=== PATIENT | male | born 1965 | race African-American/Black ===

== ENCOUNTER 2019-05-12 15:50 | Inpatient (IN) | payer MEDICAID ==
[~2019-05-12] VITALS: Ht 180.3 cm; Wt 68.9 kg
[2019-05-12] MEDS ORDERED: ALBUTEROL FS 2.5 MG/3 ML VIAL.NEB ONE ×3 (15:58→17:45)
[2019-05-12] MEDS ORDERED: ALBUTEROL FS 2.5 MG/3 ML VIAL.NEB NEB ONE (16:00)
[2019-05-12] MEDS ORDERED: IV NS 0.9% 1,000 ML IV ONE (16:00)
[2019-05-12] MEDS ORDERED: IPRATROPIUM NEB FS 0.5 MG/2.5 ML AMPUL.NEB NEB ONE (16:00)
[2019-05-12] MEDS ORDERED: Magnesium 1GM/D5W 100ML PREMIX 200 ML IV ONE (16:00)
[2019-05-12] MEDS ORDERED: methylPREDNISolone SOD SUCC 125 MG/2ML VIAL IV ONE (16:00)
[2019-05-12] MEDS ORDERED: ALBUTEROL FS 2.5 MG/3 ML VIAL.NEB CONTNEB ONE ×2 (16:00→17:30)
--- NOTE | 2019-05-12 16:00 | NUR ---
BIB FROM HOME FOR SOB AND COLD SINCE LAST NIGHT. 89% ON RA. PATIENT W Hx OF CHRONIC ASTHMA PER . TO ER BED 8, PLACED PATIENT ON SIMPLE MASK AT 6LPM, NOTED TRIPODING POSITING. HOOKED TO INSURANCE SALES MANAGER, CHANGED TO HOSPITAL GOWN, IVP STARTED AT LH 20G AND RH 20G, PATENT AND FLUSHING WELL. DR JOHNSON AT BEDSIDE. RT AT BEDSIDE STARTED PATIENT W BREATHING TX PER DOCTOR JOHNSON'S VERBAL ORDER.
[2019-05-12] MEDS ORDERED: IPRATROPIUM NEB FS 0.5 MG/2.5 ML AMPUL.NEB ONE (16:09)
[2019-05-12] MEDS ORDERED: Magnesium 1GM/D5W 100ML PREMIX 100 ML IV ONE ×2 (16:13→16:17)
[2019-05-12] MEDS ORDERED: methylPREDNISolone SOD SUCC 125 MG/2ML VIAL ONE (16:13)
[2019-05-12 16:19] LABS: BASOPHILS # (AUTO) 0.1 /CMM (0.0-0.2); BASOPHILS % (AUTO) 0.9 % (0.0-2.0); EOSINOPHILS % (AUTO) 7.2 % (0.0-6.0); HEMATOCRIT 42 % (39-51); HEMOGLOBIN 13.5 g/dL (13.5-17.5); LYMPHOCYTES # (AUTO) 1.1 /CMM (0.8-4.8); LYMPHOCYTES % (AUTO) 16.8 % (20.0-44.0); MEAN CORPUSCULAR HGB CONC 32 g/dl (31.0-36.0); MEAN CORPUSCULAR VOLUME 91 fL (80-96); MONOCYTES # (AUTO) 0.7 /CMM (0.1-1.30); MONOCYTES % (AUTO) 11.4 % (2.0-12.0); NEUTROPHILS # (AUTO) 4.2 /CMM (1.8-8.9); NEUTROPHILS % (AUTO) 63.7 % (43.0-81.0); PLATELET COUNT (AUTO) 252 /CMM (150-450); RED BLOOD CELL COUNT(AUTO) 4.59 MIL/uL (4.5-6.0); WHITE BLOOD COUNT (AUTO) 6.5 K/uL (4.3-11.0)
[2019-05-12 16:27] LABS: ABG BASE EXCESS -3.9 mmol/L; ABG OXYGEN SATURATION 97.5 % (92.0-98.5); ABG PCO2 38.2 mmHg (35.0-45.0); ABG PO2 111.7 mmHg (75.0-100.0); AaDO2 158.5 mmHg; COHb 0.6 % (0.5-1.5); MetHb 0.3 % (0.0-1.5); O2Hb 96.6 % (94.0-97.0); SITE, ABG Right Radial; VENT MODE, BG SM 6LPM
[2019-05-12 17:09] LABS: CALCIUM, SERUM 8.6 mg/dL (8.5-10.1); CARBON DIOXIDE 23 mmol/L (21-32); CHLORIDE 105 mmol/L (98-107); CREATININE 0.9 mg/dL (0.6-1.3); GLUCOSE 138 mg/dL (74-106); POTASSIUM 3.3 mmol/L (3.5-5.1); SODIUM SERUM 142 mmol/L (136-145); UREA NITROGEN, BLOOD 17 mg/dL (7-18)
[2019-05-12 17:16] LABS: ALANINE AMINOTRANSFERASE 29 U/L (12-78); ALBUMIN 3.2 g/dL (3.4-5.0); ALKALINE PHOSPHATASE 64 U/L (46-116); ASPARTATE AMINOTRANSFERASE 29 U/L (15-37); B-TYPE NATRIURETIC PEPTIDE 70 PG/ML (0-125); BILIRUBIN,DIRECT 0.2 mg/dL (0.0-0.2); BILIRUBIN,TOTAL 0.6 mg/dL (0.2-1.0); TOTAL PROTEIN, SERUM 6.7 g/dL (6.4-8.2)
--- NOTE | 2019-05-12 17:42 | NUR ---
PATIENT IN BED AWAKE, AT BEDSIDE, ON 2LPM O2 VIA NASAL CANNULA, DENIES SOB. HOOKED TO MONITOR, KEPT SAFE AND COMFORTABLE. HEAD OF BED KEPT ELEVATED. WILL CONTINUE TO MONITOR ACCORDINGLY.
[2019-05-12] MEDS ORDERED: TRAM50TA2 PO (18:43)
[2019-05-12] MEDS ORDERED: GUAI120L56 PO (18:43)
[2019-05-12] MEDS ORDERED: ALBU8.5H8 IH (18:43)
[2019-05-12] MEDS ORDERED: PROG100C15 PO (18:43)
--- NOTE | 2019-05-12 19:03 | NUR ---
PROVIDED W SANDWICH AND WATER, TOLERATED PO WELL.
--- NOTE | 2019-05-12 19:25 | NUR ---
REPORT GIVEN TO NEFTALY SANTORO FOR DIEGO
--- NOTE | 2019-05-12 19:32 | NUR ---
EPIC PAGED FOR PANEL CALL WAITING FOR CALL BACK
--- NOTE | 2019-05-12 20:08 | NUR ---
REPORT GIVEN TO MAUDE COFFEY FOR DIEGO
[2019-05-12 20:21] VITALS: BP 126/76
--- NOTE | 2019-05-12 20:24 | NUR ---
pt transported to unit on [facility] w/ emt and rn at bedside w/ acls protocol. nad noted. pt ambulated from [facility] to bed
[2019-05-12 20:25] VITALS: BP 126/76
--- NOTE | 2019-05-12 20:25 | NUR ---
GUN CLUB MANAGERSENIOR POLICY ASSOCIATE NOTE RECEIVED PATIENT VIA GURNEY FROM 2 TECH. PATIENT AMBULATED TO BED. A/O X4. ON OXYGEN 3L/MIN VIA NASAL CANNULA. RESPIRATIONS ARE EVEN AND UNLABORED. NO S/S SOB NOTED AT THIS TIME. DENIES PAIN AT THIS TIME. EXTERNAL TELE MONITOR READS ST WITH HR 109. IN NO APPARENT DISTRESS. IV ACCESS IN LEFT AND RIGHT HANDS #18 PATENT AND SALINE LOCKED. CHANGED PATIENT INTO GOWN, VS TAKEN, AND BELONGINGS LIST COMPLETED BY ENERGY PROFESSIONAL. INITAL PHYSICAL ASSESSMENT COMPLETED AT THIS TIME. SKIN ASSESSMENT COMPLETED AT THIS TIME. SKIN IS INTACT. BED IS LOW AND LOCKED, HOB ELEVATED, SIDERAILS UP X2. ORIENTED TO CALL LIGHT, CALL LIGHT WITHIN REACH. WILL CONTINUE TO MONITOR.
[2019-05-12] MEDS ORDERED: ENOXAPARIN SODIUM 40 MG/0.4 ML DISP.SYRIN SQ SCH (22:00)
[2019-05-12] MEDS ORDERED: MAGNESIUM HYDROXIDE 30 ML UDC PO PRN (22:00)
[2019-05-12] MEDS ORDERED: MAG HYDROX/AL HYDROX/SIMETH 30 ML UDC PO PRN (22:00)
[2019-05-12] MEDS ORDERED: ALBUTEROL SULFATE INH 18 GM HFA.AER.AD IH PRN (22:00)
[2019-05-12] MEDS ORDERED: ACETAMINOPHEN 325 MG TABLET PO PRN (22:00)
[2019-05-12] MEDS ORDERED: HYDROCODONE/APAP 5/325MG 1 EACH TABLET PO PRN (22:00)
[2019-05-12] MEDS ORDERED: ZOLPIDEM TARTRATE 5 MG TABLET PO PRN (22:00)
[2019-05-12] MEDS ORDERED: ONDANSETRON HCL/PF 4 MG/2 ML VIAL IVP PRN (22:00)
[2019-05-12] MEDS ORDERED: Z GUARD REMEDY 2 OZ OINT TP PRN (22:00)
[2019-05-12] MEDS ORDERED: POTASSIUM CHLORIDE 20 MEQ TAB.PRT.SR PO ONE (22:00)
[2019-05-12] MEDS: ALBUTEROL HALF STRENGTH 1.25 MG/3 ML VIAL.NEB NEB SCH (22:29)
[2019-05-12] MEDS ORDERED: LEVOFLOXACIN 500 MG /D5W 100ML 100 ML IV ONE (22:39)
[2019-05-12] MEDS: MONTELUKAST SODIUM (10MG) 10 MG TABLET PO SCH (22:39)
[2019-05-12] MEDS: LEVOFLOXACIN 500 MG /D5W 100ML 500 MG in PREMIX 1 EA IV SCH (22:40)
--- NOTE | 2019-05-12 22:45 | NUR ---
HOTEL NIGHT AUDITOR NOTE ADMINISTERED PRN TYLENOL 650 MG D/T PATIENTS TEMPERATURE OF 99.1. WILL CONTINUE TO MONITOR.
[2019-05-13] VITALS (7 sets, daily range): BP systolic 125–147; BP diastolic 61–94
--- NOTE | 2019-05-13 02:20 | NUR ---
REPORTS DEVELOPER NOTE CALLED MD TO ASK TO CHANGE ALBUTEROL INHALER TO ALBUTEROL NEBULIZER D/T THE MEDIATION OF THE ALBUTEROL INHALER IS NOT IN STOCK. PATIENT IS CURRENTLY HAVING SOB. MD WANTS THE ALBUTEROL NEBULIZER Q6HR PRN FOR SOB. READ BACK, NOTED AND CARRIED OUT.
[2019-05-13] MEDS ORDERED: ALBUTEROL HALF STRENGTH 1.25 MG/3 ML VIAL.NEB NEB PRN (02:30)
[2019-05-13 04:26] LABS: BASOPHILS % (AUTO) 0.4 % (0.0-2.0); HEMATOCRIT 39 % (39-51); HEMOGLOBIN 12.9 g/dL (13.5-17.5); LYMPHOCYTES # (AUTO) 0.4 /CMM (0.8-4.8); LYMPHOCYTES % (AUTO) 4.2 % (20.0-44.0); MEAN CORPUSCULAR HGB CONC 33 g/dl (31.0-36.0); MEAN CORPUSCULAR VOLUME 91 fL (80-96); MONOCYTES # (AUTO) 0.4 /CMM (0.1-1.30); MONOCYTES % (AUTO) 4.1 % (2.0-12.0); NEUTROPHILS % (AUTO) 91.3 % (43.0-81.0); PLATELET COUNT (AUTO) 235 /CMM (150-450); WHITE BLOOD COUNT (AUTO) 9.8 K/uL (4.3-11.0)
[2019-05-13 04:48] LABS: CALCIUM, SERUM 8.8 mg/dL (8.5-10.1); CREATININE 0.9 mg/dL (0.6-1.3); PHOSPHORUS 3.1 mg/dL (2.5-4.9); POTASSIUM 4.6 mmol/L (3.5-5.1)
--- NOTE | 2019-05-13 06:52 | NUR ---
BREAD AND PASTRY BAKER CLOSING NOTE PATIENT IN BED. A/O X4. ON OXYGEN 3L/MIN VIA NASAL CANNULA. RESPIRATIONS ARE EVEN AND UNLABORED. NO S/S SOB NOTED AT THIS TIME. EPISODE OF SOB LAST NIGHT MANAGED BY BREATHING TX GIVEN BY RT. NO C/O PAIN THROUGHOUT NIGHT. EXTERNAL TELE MONITOR READS ST. NO DISTRESS NOTED AT THIS TIME. IV ACCESS MAINTAINED IN LEFT HAND #18 RUNNING NS @75ML/HR AND RIGHT HAND #18 PATENT AND SALINE LOCKED. BED IS LOW AND LOCKED, HOB ELEVATED, SIDE RAILS UP X2. ORIENTED TO CALL LIGHT, CALL LIGHT WITHIN REACH. WILL ENDORSE TO NEXT SHIFT.
--- NOTE | 2019-05-13 07:25 | NUR ---
WET PRIMER POWDER BLENDER OPENING NOTE: RECEIVED PATIENT IN BED. AWAKE, ALERT AND ORIENTED X4. ON CONT. 02 VIA NC @ 3LPM AND TOLERATING WELL. NO SOB, NOT IN DISTRESS. IV SITE AT L AND R HAND G18 PATENT, CLEAN AND SECURE. IV INFUSION OF NS @ 75MLS/HR AT L HAND BEING TOLERATED WELL. NO PAIN REPORTED. ON CARDIAC MONITORING WITH SINUS RHYTHM NOTED. CALL LIGHT IN REACH, SIDE RAILS UP, BED LOCKED, LOW AND AT SEMI-CORRAL'S POSITION. WILL CONTINUE TO MONITOR. Addendum: 05/13/19 at 0952 by NEHAL ESPARZA RN PATIENT WITHOUT ANY IV INFUSION
[2019-05-13] MEDS: ALBUTEROL HALF STRENGTH 1.25 MG/3 ML VIAL.NEB NEB SCH ×4 (08:14→19:57)
[2019-05-13] MEDS: methylPREDNISolone SOD SUCC 40 MG/ML VIAL IV SCH ×3 (08:40→17:48)
[2019-05-13] MEDS: TRAMADOL HCL 50 MG TABLET PO SCH (08:41)
[2019-05-13] MEDS ORDERED: PROGESTERONE 100 MG PO SCH (09:00)
--- NOTE | 2019-05-13 10:00 | NUR ---
SUPERVISOR CURED MEATS NOTE: PATIENT IN STABLE CONDITION. OFFERED HOSPITAL GOWN AND SKIN ASSESSMENT. REFUSED SKIN ASSESSMENT AND STATED HE WANTED TO KEEP CLOTHES ON.
--- NOTE | 2019-05-13 18:02 | NUR ---
PATIENT REGISTRATION CLERK NOTE: RECONFIRMED WITH PATIENT ABOUT PROGESTERONE HOME MED LISTED. INFORMED NURSE THAT HE IS NOT TAKING ANYTHING OF THE KIND AND IS TAKING PREDNISONE ONLY WHICH IS THE ONLY THINGS THAT SOUNDS ALIKE TO THE MENTIONED MEDICATION. CALLED AND INFORMED PHARMACY, PROGESTERONE D/C FROM HOME MEDICATIONS.
--- NOTE | 2019-05-13 19:20 | NUR ---
FLOORMAN CLOSING NOTE: PATIENT IN BED AND ASLEEP. ON CONT. 02 VIA NC @ 3LPM AND TOLERATING WELL. NO SOB, NOT IN DISTRESS. IV SITE AT L AND R HAND G18 PATENT, CLEAN AND SECURE. NO PAIN REPORTED.ON CARDIAC MONITORING WITH SINUS RHYTHM NOTED. CALL LIGHT IN REACH, SIDE RAILS UP, BED LOCKED, LOW AND AT SEMI-CORRAL'S POSITION. REFUSED SKIN ASSESSMENTS. ENDORSED TO ONCOMING SHIFT FOR DIEGO.
--- NOTE | 2019-05-13 20:00 | NUR ---
MULTIMEDIA PRODUCTION ASSISTANT NOTE: PATIENT IN BED AWAKE WITH FAMILY AT BEDSIDE. ON CONT. 02 VIA NC @ 3LPM AND TOLERATING WELL. NO SOB, NOT IN DISTRESS AT THIS TIME. IV SITE AT L AND R HAND G18 PATENT, CLEAN AND SECURE. NO PAIN REPORTED AT THIS TIME. PT ON CARDIAC MONITORING WITH SINUS RHYTHM NOTED. CALL LIGHT WITHIN REACH, SIDE RAILS UP, BED LOCKED, LOW AND AT SEMI-CORRAL'S POSITION. WILL CONTINUE TO MONITOR.
[2019-05-13] MEDS: GUAIFENESIN/CODEINE 10 ML UDC PO PRN (20:37)
--- NOTE | 2019-05-13 20:37 | NUR ---
JIG GRINDER NOTES GUAIFENESIN AND CODEINE MEDICATION UNABLE TO SCAN. MANUAL BARCODE PUT IN. WILL CONTINUE TO MONITOR.
[2019-05-13] MEDS ORDERED: ENOXAPARIN SODIUM 40 MG/0.4 ML DISP.SYRIN SQ SCH (21:00)
[2019-05-13] MEDS: LEVOFLOXACIN 500 MG /D5W 100ML 500 MG in PREMIX 1 EA IV SCH (21:43)
[2019-05-13] MEDS: MONTELUKAST SODIUM (10MG) 10 MG TABLET PO SCH (21:56)
[2019-05-14] VITALS: BP 138/86
[2019-05-14 04:00] VITALS: BP 135/85
[2019-05-14] MEDS: ALBUTEROL HALF STRENGTH 1.25 MG/3 ML VIAL.NEB NEB SCH ×3 (07:34→16:06)
[2019-05-14 08:00] VITALS: BP 140/76
[2019-05-14 08:08] LABS: HIV SCRN 4G wRFX Non Reactive (Non Reactive)
--- NOTE | 2019-05-14 08:09 | NUR ---
FILM AND VIDEO EDITOR NOTE: PATIENT IN BED AWAKE WITH FAMILY AT BEDSIDE. ON CONT. 02 VIA NC @ 3LPM AND TOLERATING WELL. NO SOB, NOT IN DISTRESS AT THIS TIME. IV SITE AT L AND R HAND G18 PATENT, CLEAN AND SECURE. NO PAIN REPORTED AT THIS TIME. PT ON CARDIAC MONITORING WITH SINUS RHYTHM NOTED. NO ACUTE CHANGES ON SHIFT. CALL LIGHT WITHIN REACH, SIDE RAILS UP, BED LOCKED, LOW AND AT SEMI-CORRAL'S POSITION. WILL ENDORSE TO ONCOMING NURSE FOR DIEGO.
[2019-05-14] MEDS: methylPREDNISolone SOD SUCC 40 MG/ML VIAL IV SCH ×3 (08:17→17:42)
[2019-05-14] MEDS: TRAMADOL HCL 50 MG TABLET PO SCH (08:31)
[2019-05-14] MEDS: GUAIFENESIN/CODEINE 10 ML UDC PO PRN (10:39)
[2019-05-14 12:00] VITALS: BP 144/72
[2019-05-14] MEDS ORDERED: PNEUMOCOCCAL 23-VAL P-SAC VAC 0.5 ML VIAL SQ ONE (14:00)
[2019-05-14 16:00] VITALS: BP 133/68
--- NOTE | 2019-05-14 17:50 | NUR ---
RN NOTE PT DISCHARGED HOME IN STABLE CONDITION, IV REMOVED, ID BAND REMOVED, PRESCRIPTION GIVEN TO PT AND SENT TO [facility] ON [address], TEACHING DONE TO PT, PT VERBALIZED UNDERSTANDING, EXIT CARE DONE, DISCHARGE PAPERS PROVIDED AND SIGNED. BELONGINGS LIST SIGNED AND PROVIDE TO PT.
== END 2019-05-14 17:50 | disposition home or self-care (01) | DRG 141 ==
LOC: ER 15:50 → TELE1 20:03
PROVIDERS: ADMIT Hospitalist; ATTEND Internal Medicine
DX: J45.901 Unspecified asthma with (acute) exacerbation (principal); J96.01 Acute respiratory failure with hypoxia; E44.1 Mild protein-calorie malnutrition; E88.09 Other disorders of plasma-protein metabolism, not elsewhere classified; E87.6 Hypokalemia; F17.210 Nicotine dependence, cigarettes, uncomplicated; F10.10 Alcohol abuse, uncomplicated; Z68.21 Body mass index [BMI] 21.0-21.9, adult; R00.0 Tachycardia, unspecified
CPT/HCPCS: 36415; 36600; 71045-TC; 80048-TC; 80061-TC; 80074; 80076-TC; 82803-TC; 83735-TC; 83880; 84100-TC; 84484-TC; 85025-TC; 86704; 86708; 86709; 87081-TC; 90732; 94799-TC; A4216; G0378; J1650; J1956; J2920; J2930; J3475; J7030; J7050

== ENCOUNTER 2020-08-13 19:41 | Emergency (ER) | payer MEDICAID, OTHER ==
[~2020-08-13] VITALS: Ht 180.3 cm; Wt 79.4 kg
[~2020-08-13 19:41] MED LIST: ALBU8.5H8 IH; GUAI120L56 PO; TRAM50TA2 PO
--- NOTE | 2020-08-13 19:55 | NUR ---
THE PATIENT BIBSELF C/O SOB X3 DAYS +COUGH. THE PATIENT DENIES PAIN. IN ROOM AIR. PATIENT IS AAO X4. PLACED ON A MONITOR. WILL CONTINUE TO MONITOR THE PATIENT.
[2020-08-13] MEDS ORDERED: ALBUTEROL FS 2.5 MG/3 ML VIAL.NEB NEB ONE (20:00)
[2020-08-13] MEDS ORDERED: predniSONE 20 MG TABLET ONE (20:00)
[2020-08-13] MEDS ORDERED: predniSONE 20 MG TABLET PO ONE (20:00)
[2020-08-13] MEDS ORDERED: IPRATROPIUM NEB FS 0.5 MG/2.5 ML AMPUL.NEB NEB ONE (20:00)
[2020-08-13] MEDS ORDERED: ALBUTEROL FS 2.5 MG/3 ML VIAL.NEB ONE (20:20)
[2020-08-13] MEDS ORDERED: IPRATROPIUM NEB FS 0.5 MG/2.5 ML AMPUL.NEB ONE (20:20)
[2020-08-13] MEDS ORDERED: FLUT1DIS5 INH (20:48)
[2020-08-13] MEDS ORDERED: PRED50TA PO (20:48)
[2020-08-13] MEDS ORDERED: ALBU18HF2 INH (20:48)
[2020-08-13 20:57] VITALS: BP 145/99
--- NOTE | 2020-08-13 20:57 | NUR ---
Patient discharged to home in stable condition. Written and verbal after care instructions given. Patient verbalizes understanding of instruction. The patient left ER in stable condition accomplained by his
== END 2020-08-13 20:58 | disposition home or self-care (01) ==
LOC: ER 19:44
DX: J45.909 Unspecified asthma, uncomplicated (principal); Z79.899 Other long term (current) drug therapy
CPT/HCPCS: 71045; 93005; 94640; 99283; J7512